=== PATIENT | female | born 2000 | race Hispanic/Latino ===

== ENCOUNTER 2021-10-07 13:05 | Emergency (ER) | payer OTHER, SELFPAY ==
[2021-10-07 13:23] VITALS: BP 115/78; PULSE 72; RESP 16; TEMP 36.4; O2SAT 100
--- NOTE | 2021-10-07 14:30 | PC.NURSE ---
Pt called for lab draw with no answer.
== END 2021-10-07 14:30 | disposition left against medical advice (07) ==
LOC: ANHED 17:54
PROVIDERS: PCP Registered Nurse
DX: O26.891 Other specified pregnancy related conditions, first trimester (principal); R10.10 Upper abdominal pain, unspecified; Z3A.01 Less than 8 weeks gestation of pregnancy
CPT/HCPCS: 99199

== ENCOUNTER 2022-02-09 14:30 | Outpatient (RCR) | payer MEDICAID, SELFPAY ==
--- NOTE | 2022-02-09 15:46 | PTOPEVAL1 ---
Assessment and note entered by Almaz Wilson DPT Evaluation Information Assessment Status Evaluation Reported Pain Level Pain Score 4: Self Report Additional Pain Score Comments Pt is currently 26 weeks 1 day . Reports back pain, difficulty sleeping and pain with walking after standing up. Highest pain 7/10 and lowest 4/10. Describes as a shooting pain, does not radiate down legs. Does report leg cramps. Pain is mostly central and to left. Feels pressure anteriorly. Pt reports no complications so far with . Reports decreased cooking, cleaning at work due to pain. No previous back pain. Assessment PT Clinical Summary The patient is presenting to skilled therapy at 26 weeks with low back pain. She presents with decreased lower extremity strength and SIJ impairments which are contributing to her pain and difficulty with walking and performing typical ADL's. She will benefit from skilled therapy to address these impairments and safely reduce pain and dysfunction as her progresses. Plan of Care Interventions Hot Pack/Cold Pack,Manual Therapy,Neuro Re- education,Patient/Caregiver Education ,Therapeutic Activities,Therapeutic Exercise,Self-Care/Home Management PT Services Indicated Yes Treatment Frequency and 1-2 times a week for 4 weeks Duration These treatments will address the objective and functional deficits as defined above. The patient will be advanced safely and appropriately in order for the patient to progress towards his/her prior level of function. Additional exercises will be introduced and as well as a comprehensive home exercise program upon discharge, if needed, ?to ensure carryover of functional gains achieved in the clinic. This treatment plan has been reviewed and agreement upon by the patient.
--- NOTE | 2022-03-10 09:43 | PCPTNOTE ---
Patient called & cancelled scheduled re-evaluation this date due to having to get a tooth pulled. She has not been re-scheduled at this time.
--- NOTE | 2022-04-06 15:53 | PTOPDC ---
Assessment and note entered by Almaz Wilson, DPT Evaluation Information Assessment Status Discharge - Pt Not Presen Assessment PT Clinical Summary Patient has not attended therapy since her initial evaluation. Per our attendance policy, she will be discharged this visit. A new script will be required to resume therapy at a later date.
== END 2022-04-07 14:08 | disposition home or self-care (01) ==
LOC: ANHGOSHPT 14:30
PROVIDERS: PCP Registered Nurse; Visit Provider Advanced Practice Midwife
DX: O26.899 Other specified pregnancy related conditions, unspecified trimester (principal); M54.9 Dorsalgia, unspecified; Z3A.00 Weeks of gestation of pregnancy not specified
CPT/HCPCS: 97110; 97161

== ENCOUNTER 2022-03-21 16:05 | Observation (INO) | payer OTHER, SELFPAY ==
[2022-03-21 16:21] VITALS: BP 119/75; PULSE 93
[2022-03-21 16:43] LABS: Appearance Urine Slightly Cloudy (Clear); Bilirubin Urine Negative (Negative); Blood Urine Negative (Negative); Color Urine Yellow (Yellow); Glucose Urine UA Negative (Negative); Ketones Urine Negative (Negative); Leukocyte Esterase Ur 1+ LEU/UL (Negative); Nitrate Urine Negative (Negative); Protein Urine 1+ mg/dL (Negative); Urobilinogen Urine 0.2 mg/dL (<2.0)
[2022-03-21 16:47] VITALS: BMI 42.5
--- NOTE | 2022-03-21 16:48 | OBADM ---
This patient, Vianney Gray, admitted to the OB room OB Post 117 for observation. Patient/family oriented to hospital policies and general routines including ID bracelet, bed and alarms, visiting hours, pain management, procedures, bathroom and other care routines, personal items, smoking policy, room service/diet, and visiting hours. Patient/Family are encouraged to report perceived risks to care and to ask questions if they do not understand what they are told or what they should do.
[2022-03-21 16:57] LABS: Add Urine Microscopic? YES; Bacteria Urine Trace /hpf; Mucus Urine Rare /lpf; Squamous Epithelial Cell Urine Many /hpf (Few)
--- NOTE | 2022-04-18 21:17 | PM.OBTRLD ---
OB - Triage/Final Diagnosis Visit Information Comments/Additional reasons for admission: I have assessed the risk for this patient, Vianney Gray, and determined that she would benefit from observation care. Evaluation Laboratory results: Laboratory Tests 03/21/22 16:34 Urine Color Yellow Urine Appearance Slightly cloudy Urine pH 7.0 Ur Specific [place] 1.020 Urine Protein 1+ H Urine Glucose (UA) Negative Urine Ketones Negative Ur Blood (Man) Negative Urine Nitrate Negative Urine Bilirubin Negative Urine Urobilinogen 0.2 Leukocyte Esterase Rfl 1+ H Urine RBC 3-5 H Urine WBC 4-6 H Ur Squamous Epith Cells Many H Urine Bacteria Trace Urine Mucus Rare Final Diagnosis (1) Uterine contractions: Code(s): O47.9 - False labor, unspecified Status: Acute
== END 2022-03-21 17:25 | disposition home or self-care (01) ==
PROVIDERS: Admitting Provider Obstetrics & Gynecology; PCP Registered Nurse; Visit Provider Obstetrics & Gynecology
DX: O47.03 False labor before 37 completed weeks of gestation, third trimester (principal); Z3A.31 31 weeks gestation of pregnancy
CPT/HCPCS: 81001; 84112; G0378; G0379

== ENCOUNTER 2022-04-23 12:58 | Outpatient (RCR) | payer OTHER, SELFPAY ==
[2022-04-23] MEDS: RHO(D) IMMUNE GLOBULIN 300 MCG/2 ML SYRINGE IM (15:34)
== END 2022-04-23 13:00 | disposition home or self-care (01) ==
LOC: ANHLAB 12:58
PROVIDERS: PCP Registered Nurse; Visit Provider Advanced Practice Midwife
DX: Z29.13 Encounter for prophylactic Rho(D) immune globulin (principal); O36.0130 Maternal care for anti-D [Rh] antibodies, third trimester, not applicable or unspecified; Z3A.00 Weeks of gestation of pregnancy not specified
CPT/HCPCS: 36415; 85461; 86850; 86900; 86901; 90384; 96372; J2790

== ENCOUNTER 2022-05-18 16:55 | Inpatient (IN) | payer OTHER, SELFPAY ==
[2022-05-18] VITALS (9 sets, daily range): BP systolic 66–134; BP diastolic 39–89; PULSE 86–109; BMI 45.3
--- NOTE | 2022-05-18 17:18 | P.PNAN_ITS ---
Anes - Initial Pre Proc Eval Procedure: labor epidural Date/Time: 05/18/22 17:18 Surgeon: Gudelia Nieto MD Pre Op Diagnosis: labor pain Pre Op Diagnosis: Induction of Labor Patient Data Age: 21 Gender: F Height: Weight: Allergies Allergy/AdvReac Type Severity Reaction Status Date / Time No Known Allergies Allergy Verified 04/17/22 13:11 Home Medications Medication Instructions Recorded Confirmed Type cyclobenzaprine 5 mg tablet 5 mg PO PRN PRN Back Pain 03/21/22 03/21/22 History vit no.95-ferrous 1 tablet PO DAILY 03/21/22 03/21/22 History fumarate 28 mg-folic acid 800 mcg tablet () Patient hx anesthesia problems: none Family hx anesthesia problems: none Results Review: All pre-operative results and documents have been reviewed as part of the pre- operative evaluation. [facility] Family History Family History (Updated 04/17/22 @ 13:13 by Narciso Francois RN) Grandparent Hypertension Diabetes mellitus Social History Social History Substance use: former Spiritual care concerns: No Anes - Eval Final PreProcedure Day of Procedure 05/18/22 17:18 Patient weight: morbidly obese ASA classification: III Anesthetic plan: proceed Anesthesia type and monitoring: regional epidural and standard monitoring Results Review: All pre-operative results and documents have been reviewed as part of the pre- operative evaluation. Informed Consent: The patient's anesthetic plan and its attendant risks and benefits were discussed with the patient/family/POA. Questions were solicited and answers provided to the satisfaction of the patient/family/POA.
[2022-05-18 17:54] LABS: Basophils Absolute Auto 0.1 K/mm3 (0.0-0.1); Basophils Percent Auto 0.7 % (0.2-1.2); Eosinophils Absolute Auto 0.1 K/mm3 (0-0.3); Eosinophils Percent Auto 1.3 % (0-4.4); Hematocrit 34.2 % (37.0-47.0); Hemoglobin 10.8 g/dL (12.0-15.0); Immature Granulocyte Absolute 0.14 K/mm3 (0.00-0.031); Immature Granulocyte Percent A 1.6 % (0-0.5); Lymphocytes Absolute Auto 1.69 K/mm3 (0.9-3.2); Lymphocytes Percent Auto 19.6 % (18.3-44.2); Mean Corpuscular HGB Conc 31.6 g/dl (32-36); Mean Corpuscular Hemoglobin 25.5 pg (26-34); Mean Corpuscular Volume 80.9 fl (80-100); Mean Platelet Volume 10.6 fl (7.4-10.4); Monocytes Absolute Auto 0.9 K/mm3 (0.1-0.6); Monocytes Percent Auto 10.2 % (2.6-8.5); Neutrophils Absolute Auto 5.8 K/mm3 (1.3-6.7); Neutrophils Percent Auto 66.6 % (45.5-73.1); Platelet Count Result 313 k/mm3 (150-375); Red Blood Count 4.23 M/mm3 (4.2-5.4); Red Cell Distribution Width 16.2 % (11.5-14.5); White Blood Count 8.6 K/mm3 (4.5-10.0)
[2022-05-18] MEDS: DINOPROSTONE 10 MG VAG INSERT VAGINAL (17:54)
[2022-05-18] MEDS: fentaNYL CITRATE INJ (*CRX) 100 MCG/2 ML VIAL 50 MCG IV PUSH (21:44)
[2022-05-18] MEDS: fentaNYL CITRATE INJ (*CRX) 100 MCG/2 ML VIAL IV PUSH (22:36)
[2022-05-19] VITALS (117 sets, daily range): BP systolic 63–135; BP diastolic 30–97; PULSE 29–210; RESP 16–18; TEMP 36.3–37; O2SAT 73–100
[2022-05-19] MEDS: fentaNYL CITRATE INJ (*CRX) 100 MCG/2 ML VIAL IV PUSH (00:25)
[2022-05-19] MEDS: LACTATED RINGERS 1,000 ML 125 ML IV CONT ×3 (00:27→05:52)
[2022-05-19] MEDS: OXYTOCIN 30 UNITS/NS 500 ML 30 UNITS/500 ML BAG IV CONT (02:46)
--- NOTE | 2022-05-19 07:35 | WPDOBADMIT ---
Obstetrics - Admit Note Admission Note: record reviewed. No pertinent additions to the history and/or any subsequent changes in the physical findings that are not consistent with the expected course of the were found. Elective IOL, AROM 3-4/80/-2, small amount of clear, odorless fluid., anticipate vaginal delivery Additions to the history and/or subsequent changes in the physical findings follow. None.
[2022-05-19 09:52] LABS: Rapid Plasma Reagin Non-Reactive (NonReactive)
[2022-05-19] MEDS: LIDOCAINE HCL 1% PF 30 ML VIAL (15:10)
[2022-05-19] MEDS: OXYTOCIN 30 UNITS/NS 500 ML 30 UNITS/500 ML BAG 125 UNITS IV CONT (15:20)
--- NOTE | 2022-05-19 15:29 | PM.OBPRVD ---
OB - Delivery Note Procedure Delivery date: 05/19/22 Procedure: Induction method: Per Cervidil Protocol Delivery augmentation: Rupture of Membranes and Pitocin Delivery monitor: External FHT and Internal Uterine Route of delivery: Laceration Description: Perineal - 2nd Degree Delivery repair: vicryl Specimen: No Quantitative Blood Loss (ml): 282 Anesthesia type: Epidural Disposition: Floor Narrative: mom and baby stable and doing skin to skin Baby Date of : 05/19/22 Time of : 15:03 Weeks of gestation at delivery: 40 Infant gender: Male Weight (pounds): 8 Weight (ounces): 3 presentation: vertex position: Left Occiput Anterior Placenta delivery description: Spontaneous Cord Vessel Description: 3 Vessels, Clamped/Cut and Delayed Cord Clamping score one minute: 9 score five minutes: 9
[2022-05-19] MEDS: WITCH HAZEL 40 PADS 1 PAD TOPICAL (16:32)
[2022-05-19] MEDS: BENZOCAINE 20% AER SPR (*SP) 56 GM CAN 1 SPRAY TOPICAL (16:33)
[2022-05-19] MEDS: IBUPROFEN 600 MG TABLET PO (19:13)
[2022-05-20 05:15] VITALS: BP 104/72; PULSE 80; RESP 16; TEMP 37; O2SAT 100
[2022-05-20] MEDS: IBUPROFEN 600 MG TABLET PO ×3 (05:22→17:07)
[2022-05-20 05:27] LABS: Hematocrit 28.6 % (37.0-47.0); Hemoglobin 8.5 g/dL (12.0-15.0)
--- NOTE | 2022-05-20 07:45 | PM.OBPNVD ---
OB - PN: Subj Subjective Date/time seen: 05/20/22 07:45 Patient comments: no complaints baby status: doing well OB - PN: Obj Data Labs 05/20/22 05:18 Labs: Laboratory Results - last 24 hr 05/18/22 05/20/22 05/20/22 17:45 05:18 05:18 Hgb 8.5 L Hct 28.6 L RPR Non-reactive Blood Type O Negative OB - PN A/P Plan day: 1 Plan: routine care Time Spent With Patient Time: Total time spent is greater than 50% in coordination of care (as documented) at patient's floor/unit and/or counseling patient: Time with patient: less than 15 minutes Review of Systems Review of Systems: All systems reviewed & are unremarkable except as noted in HPI and below Exam Narrative: Fundus firm and vaginal flow controlled. No lower ext redness, warmth, or edema. Negative homans. Const: General: comfortable Chest: Breast/axilla inspection: normal inspection of the breasts Resp: Effort & Inspection: normal respiratory effort Cardio: Rate: regular rate GI: GI Palp: Yes Soft to palpation Psych: Appearance: grossly normal Affect: normal affect Attitude: cooperative Thought content: Yes Normal thought content present Judgement: Good judgement present (Psych)
[2022-05-20 08:15] VITALS: BP 112/79; PULSE 83; RESP 20; TEMP 36.6; O2SAT 100
--- NOTE | 2022-05-20 08:15 | PC.NURSE ---
PT introductions made and plan of care discussed per post , pain management, breast feeding, daily care activities. PT and spouse both recipients of such instructions and a barriers to learning was dentified at this time for spouse as he speaks Yoruba predominantly while mom is fluent in Maltese. PT received such instructions this shift via one to one discussion, mom baby care guide and demonstrations. PT verbalized understanding of such care.
--- NOTE | 2022-05-20 10:52 | PC.NURSE ---
1021 - Introductions were made and stated RN would return due to completing insurance information with staff.
[2022-05-20] MEDS: MULTIVIT/MIN/PREN/FOL AC/IRON TABLET 1 TAB PO (11:19)
[2022-05-20] MEDS: ACETAMINOPHEN 325 MG TABLET 650 MG PO ×2 (11:19→17:06)
[2022-05-20] MEDS: LANOLIN (LANSINOH) 7.5 GM CREAM 1 APPLIC TOPICAL (11:20)
[2022-05-20] MEDS: POLYSACCHARIDE IRON COMPLEX 150 MG CAPSULE PO ×2 (11:20→17:08)
[2022-05-20] MEDS: DOCUSATE SODIUM 100 MG CAPSULE PO ×2 (11:20→17:07)
[2022-05-20] MEDS: RHO(D) IMMUNE GLOBULIN 300 MCG/2 ML SYRINGE IM (11:49)
[2022-05-20 12:10] VITALS: BP 122/68; PULSE 92; RESP 16; TEMP 37.1; O2SAT 100
--- NOTE | 2022-05-20 13:02 | PC.NURSE ---
[id number] Re-introductions were made, then consulted with patient to assess needs related to . Mother led the conversation with her?plans to feed?her infant, that she desires to breastfeed and the?experience so far. Mother works well with her infant with encouragement and education. Encouraged understanding of the benefits of skin to skin (demonstrating unwrapping and placing upright on her chest), stimulating with massage touch, changing positions to encourage wakefulness, how to watch for early feeding cues, responsive feeding, feeding on demand (aiming for 8-12 times in 24 hours, about every 2-3 hours), milk production, building/maintaining a milk supply, duration of feeding, signs of adequate intake/output and how to record on the feeding sheet. Reviewed positioning and ear, shoulder, hip alignment, supporting the breast to facilitate a deep latch, asymmetrical latch (off-center), leading with the chin with a big, open, wide gape and body close to mother. Repeated attempts were made to latch to the right breast using football positioning. Infant latches to mother with a big, open wide mouth, then repositions to mouth on the nipple. After multiple attempts latched optimally and maintained for a few minutes, then became sleepy again. Mother was encouraged to move upright skin to skin, then once feeding cues were observed again, latched optimally to the left breast in football position after a couple of attempts. Education given to mother of how to visualize suck/swallow ratios and listen for drinking at the breast. Infant was able to maintain latch without discomfort to mother. Nipple care reviewed with optimal latch and good positioning. Reminding mother of comfort measures of healing with a warm and wet washcloth to rinse breast, then leave open to air-dry as needed. Reviewed good handwashing when or touching the breast/nipples to prevent infection. Resources used to facilitate learning were used with the tool/mom and baby guide. Mother voiced understanding of skin to skin, stimulating with massage touch, responsive feedings, hand expressed colostrum, talking to infant to encourage if it has been 2 -2.5 hours since the start of the last , to call if infant does not latch, or if there is discomfort with . Resources provided for inpatient/outpatient with the mom/baby guide. Mother voiced understanding of information, demonstrated learning and will call if there is a request for assistance. Reported to the primary RN.
--- NOTE | 2022-05-20 15:20 | PC.NURSE ---
1515 -1520 Consulted with patient to assess needs related to . Mother led conversation with her experience with feeding baby so far and states she has been trying to latch her infant on her own without calling for assistance. Mother is having difficult getting comfortable holding and moving her infant to the breast. Mother works well with her with encouragement. Reviewed good positioning, working with infant, supporting breast and how to protect the nipples with an optimal deep latch. Reviewed positioning and alignment, supporting breast, off-centered (asymmetrical latch) and leading with the chin with big, open, wide gape. latched optimally to the left breast in cross cradle position. Education given to mother of how to visualize suck/swallow ratios and listen for drinking at the breast. Infant was able to maintain latch without discomfort to mother demonstrating appropriate suck/swallow rocking jaw motion with pausing. Mother voiced understanding of the education shared and after infant effectively on the left breast there is a plan for assisting latching to the right breast. Reported to the primary RN.
[2022-05-20 19:40] VITALS: BP 117/78; PULSE 106; RESP 16; TEMP 36.8; O2SAT 99
--- NOTE | 2022-05-21 05:28 | PC.NURSE ---
Patient viewed the discharge video Mother & Baby Care, The First Two Weeks . Patient was given the opportunity and encouraged to ask questions. Patient verbalized understanding of information shared and has been given the mother/baby guide for home reference.
--- NOTE | 2022-05-21 07:00 | PC.NURSE ---
PT introductions made and plan of care discussed per post , pain management, breast feeding, daily care activities and pending discharge to home. PT and fob both recipients of such instructions and a barrier to learning was identified at this time for fob as he speaks Salvadorean predominantly while mom is fluent in Faroese. PT received such instructions this shift via one to one discussion, mom baby care guide and demonstrations. PT verbalized understanding of such care.
--- NOTE | 2022-05-21 07:15 | PC.NURSE ---
PT introductions made and plan of care discussed per post , pain management, breast feeding, daily care activities and pending discharge to home. PT and fob both recipients of such instructions and no barriers to learning identified at this time. PT received such instructions this shift via one to one discussion, mom baby care guide and demonstrations. PT verbalized understanding of such care.
[2022-05-21 07:33] VITALS: BP 119/67; PULSE 74; RESP 16; TEMP 36.8; O2SAT 100
--- NOTE | 2022-05-21 07:45 | PM.OBPNVD ---
OB - PN: Subj Subjective Date/time seen: 05/21/22 07:45 s/p vaginal delivery day 2 OB - PN: Obj Data Labs 05/20/22 05:18 Labs: Laboratory Results - last 24 hr 05/20/22 05:18 Blood Type O Negative Antibody Screen TNP Screen Negative Baby's Blood Type O pos Baby's REVA Negative Doses of RhIg Required 1 OB - PN A/P Plan day: 2 Plan: routine care and discharge home Time Spent With Patient Time: Total time spent is greater than 50% in coordination of care (as documented) at patient's floor/unit and/or counseling patient: Review of Systems Review of Systems: All systems reviewed & are unremarkable except as noted in HPI and below Exam Const: General: cooperative and healthy appearing
--- NOTE | 2022-05-21 07:47 | PM.OBDSVD ---
DS: Admitting Diagnosis Discharge Date 05/21/22 Admitting Diagnosis IOL DS: Discharge Diagnosis Discharge Diagnosis (1) Vaginal delivery: Code(s): O80 - Encounter for full-term uncomplicated delivery Status: Acute OB - DS: Summary OB Procedures : None OB Procedures Intrapartum: Spontaneous Vag Delivery OB Procedures: : None Time Spent with Patient Time attestation: Total time spent providing and/or coordinating discharge services: DS: Data Data Completed and Pending Labs on day of discharge: Labs from last 24 hours 05/20/22 05:18 Blood Type O Negative Antibody Screen TNP Screen Negative Baby's Blood Type O pos Baby's REVA Negative Doses of RhIg Required 1 Discharge Plan Discharge Attending physician on discharge: Gudelia Nieto Discharging Clinician: Natalia Langston Patient Disposition: Home, Self-Care Activity: pelvic rest Diet: regular Discharge Instructions: Education: Mom and Baby Guide Given to: Mother Follow-Up: Call your delivering provider's office for an appointment to be seen in: 4 Weeks Mom and baby should come to the [facility] for the follow-up appointment. Appointment Date/Time: May 22, 2022 at 11:00 am What to expect at your follow-up visit: Blood Pressure Check Call [phone] if you are unable to keep your appointment time. BREAST CARE: * Wear a snug supportive bra. * For engorgement discomfort: Breast Feeding: * Apply warm moist washcloths * Express milk as needed to relieve engorgement * Wear loose clothing Bottle Feeding: * May apply ice packs * For sore nipples: * Identify correct latch-on * Apply warm moist washcloths before and after nursing * Air dry nipples after nursing * May apply Lansinoh cream to nipples PERINEAL CARE: * Until bleeding stops, use your rito bottle after urinating * Change your pad frequently throughout the day * You may take sitz baths several times a day (fill your bathtub with warm water and soak for 20 minutes.) Do NOT bathe in the water * No tub baths until seen by your physician - You may shower ACTIVITY: * Rest as much as possible. * Do not exercise or lift anything heavier than your baby (such as laundry or other children.) * Avoid stairs or driving as much as possible. * Do not put anything into the vagina. No douching, tampons, or sexual activity until seen by physician. NOTIFY PHYSICIAN IF YOU HAVE ANY QUESTIONS OR IF ANY OF THE FOLLOWING SYMPTOMS OCCUR: * If your perineum becomes red, swollen, or more painful than what you have experienced in the hospital. * If your vaginal bleeding becomes foul smelling. * If your vaginal bleeding becomes more heavy than a period or if your bleeding changes from pink to bright red. However, you may pass an occasional walnut-sized clot once or twice for the first week . * If you experience a sharp, shooting pain in you calves. * If you discover a hard, reddened area on your breast or if you experience flu-like symptoms. * If you have a fever of 100.4 or greater DIET: * Eat regular, well-balanced meals. * Drink plenty of fluids daily. If , drink to thirst. Patient Instructions: Antibiotic Form Stand Alone Forms: General Discharge Information Follow-up/Referrals: Natalia Langston CNM [Certified Nurse Resource Efficiency Manager] - 4 Weeks Discharge Medications: New ibuprofen 600 mg Tablet 600 mg PO Q6H PRN (Reason: Cramping) Qty: 30 0RF Continued PNV cmb#95-ferrous fumarate-FA [] 28 mg iron- 800 mcg tablet 1 tablet PO DAILY Discontinued cyclobenzaprine 5 mg tablet 5 mg PO PRN PRN (Reason: Back Pain) Date of admission: 05/18/22 16:55 Primary Care Provider: Gwendolyn,Susannah Admitting Provider: Gudelia Nieto Attending physician on admission: Gudelia Nieto
[2022-05-21] MEDS: IBUPROFEN 600 MG TABLET PO (10:16)
[2022-05-21 10:18] VITALS: PULSE 74; RESP 16
[2022-05-21] MEDS: DOCUSATE SODIUM 100 MG CAPSULE PO (10:18)
[2022-05-21] MEDS: MULTIVIT/MIN/PREN/FOL AC/IRON TABLET 1 TAB PO (10:18)
[2022-05-21] MEDS: ACETAMINOPHEN 325 MG TABLET 650 MG PO (10:18)
[2022-05-21] MEDS: POLYSACCHARIDE IRON COMPLEX 150 MG CAPSULE PO (10:18)
--- NOTE | 2022-05-21 11:00 | PC.NURSE ---
PT received discharge instructions per protocol and verbalized understanding of such care
--- NOTE | 2022-05-21 11:14 | PC.NURSE ---
[id number] Mother led the conversation with her experience, her change of plan to feed her so far related to her anxiety and her ability to continue to practice at home, pumping her breast for a milk supply and supplementing with formula. Reminded parents to use good handwashing technique to prevent infection. Mother is feeding appropriately for growth of infant and understands stimulating infant to eat if needed. has had appropriate feedings in the last 24 hours meets the outcomes for weight, output and jaundice at this time. Mother states she is confident to continue feeding her infant at home. Reinforced understanding of milk production ( or pumping at least 8 times in a 24 hour period 1-2 times at night), transition of milk, signs of adequate intake, transition of stool, prevention/relief of engorgement, responsive watching for feeding cues, feeding infant on demand or every 3 hours, community resources, medication information reviewed per [facility] and when to call a provider using the resource of the mom and baby guide. Mother voiced understanding of the education shared. Reported to the primary RN.
--- NOTE | 2022-05-21 11:47 | PC.NURSE ---
PT discharged to home ambulatory accompanied by fob and infant and taken to waiting car. Follow up appts confirmed
[2022-05-22 11:21] VITALS: BP 131/73; PULSE 101; RESP 18; TEMP 37; O2SAT 100
== END 2022-05-21 11:47 | disposition home or self-care (01) | DRG 560 ==
LOC: ANHOB2 05-21 07:47 → ANHLDR 05-24 11:08 → ANHOB2 05-24 11:08
PROVIDERS: Admitting Provider Obstetrics & Gynecology; PCP Registered Nurse; Referring Provider Advanced Practice Midwife; Visit Provider Advanced Practice Midwife
DX: O70.1 Second degree perineal laceration during delivery (principal); Z37.0 Single live birth; Z3A.40 40 weeks gestation of pregnancy
CPT/HCPCS: 36415; 85014; 85018; 85025; 85461; 86592; 86850; 86880; 86900; 86901; 86902; 90384; A9270; J2590; J2790; J2795; J3010; J7120